=== PATIENT | female | born 1990 | race Hispanic/Latino ===

== ENCOUNTER 2019-06-24 10:28 | Emergency (ER) | payer MEDICAID, OTHER ==
[2019-06-24] MEDS ORDERED: KETOROLAC TROMETHAMINE 60 MG/2 ML VIAL ONE (11:57)
[2019-06-24] MEDS ORDERED: DEXAMETHASONE SOD PHOSPHATE 10MG/ML 1ML VIAL ONE (11:57)
[2019-06-24] MEDS ORDERED: LIDOCAINE HCL-MPF 1% 2ML VIAL ONE (11:57)
[2019-06-24] MEDS ORDERED: CEFTRIAXONE SODIUM 1 GM ONE (11:57)
== END 2019-06-24 12:45 | disposition home or self-care (01) ==
LOC: EDH 10:28
DX: J02.0 Streptococcal pharyngitis (principal); R11.2 Nausea with vomiting, unspecified
CPT/HCPCS: 81025; 87880; 96372 ×3; 99284; J0696; J1100; J1885; J3490

== ENCOUNTER 2019-07-22 13:44 | Emergency (ER) | payer OTHER | END 2019-07-22 14:35 | disposition home or self-care (01) | LOC: EDH 13:44 | DX: B08.4 Enteroviral vesicular stomatitis with exanthem (principal) | CPT/HCPCS: 99281 ==

== ENCOUNTER 2019-09-19 08:32 | Emergency (ER) | payer OTHER ==
[2019-09-19] MEDS ORDERED: LIDOCAINE HCL 1% 20 ML VIAL ONE (09:29)
== END 2019-09-19 10:02 | disposition home or self-care (01) ==
LOC: EDH 08:32
DX: L02.211 Cutaneous abscess of abdominal wall (principal); R21 Rash and other nonspecific skin eruption
CPT/HCPCS: 10060

== ENCOUNTER 2019-09-24 17:15 | Emergency (ER) | payer SELFPAY ==
[2019-09-24] MEDS ORDERED: LIDOCAINE HCL 1% 20 ML VIAL ONE (18:10)
[2019-09-24] MEDS ORDERED: LIDOCAINE HCL 2% VISCOUS 15 ML UDCUP ONE (18:33)
[2019-09-24] MEDS ORDERED: LIDOCAINE HCL-MPF 1% 2ML VIAL ONE (20:20)
[2019-09-24] MEDS ORDERED: CEFTRIAXONE SODIUM 1 GM ONE (20:20)
== END 2019-09-24 20:52 | disposition home or self-care (01) ==
LOC: EDH 17:15
DX: L02.411 Cutaneous abscess of right axilla (principal)
CPT/HCPCS: 82948; 87070; 87076; 96372; 99284; J0696; J3490

== ENCOUNTER 2019-11-24 20:15 | Emergency (ER) | payer OTHER ==
[2019-11-24 20:43] LABS: APPEARANCE,URINE Clear (CLEAR); BILIRUBIN,URINE Small (NEGATIVE); COLOR,URINE Dark Yellow (YELLOW); GLUCOSE, URINE (UA) Negative (NEGATIVE); KETONES,URINE Trace mg/dL (NEGATIVE); LEUKOCYTE ESTERASE ,URINE Small (NEGATIVE); NITRATE,URINE Negative (NEGATIVE); OCCULT BLOOD,URINE Negative (NEGATIVE); PH,URINE 5.5 (5.0-8.0); PROTEIN,URINE Trace mg/dL (NEGATIVE)
[2019-11-24 20:47] LABS: HCG,QUAL RESULT NEGATIVE (NEGATIVE)
[2019-11-24 21:54] LABS: BACTERIA,URINE Few /HPF (None Seen); RBC,URINE 0-1 /HPF (0-1)
== END 2019-11-24 22:30 | disposition home or self-care (01) ==
LOC: EDH 20:15
DX: N39.0 Urinary tract infection, site not specified (principal)
CPT/HCPCS: 81001; 81025

== ENCOUNTER 2022-08-11 19:17 | Emergency (ER) | payer MEDICAID ==
[~2022-08-11] VITALS: Ht 170.2 cm; Wt 97.5 kg
[2022-08-11 20:13] VITALS: BP 119/90
[2022-08-11] MEDS ORDERED: GENTAMICIN SULFATE 0.3% 5ML DROPS OU SCH (20:30)
== END 2022-08-11 20:30 | disposition home or self-care (01) ==
LOC: EDH 19:17
DX: H10.9 Unspecified conjunctivitis (principal)

== ENCOUNTER 2022-08-24 17:15 | Emergency (ER) | payer MEDICAID ==
[~2022-08-24] VITALS: Ht 170.2 cm; Wt 97.5 kg
[2022-08-24 17:17] VITALS: BP 137/77
[2022-08-24] MEDS ORDERED: GUAIFENESIN-CODEINE 5 ML SYRUP PO ONE (18:00)
[2022-08-24] MEDS ORDERED: ALBUTEROL INHALER 90MCG/INH IH ONE (18:00)
[2022-08-24] MEDS ORDERED: CEFTRIAXONE 1G VIAL IM ONE (18:00)
[2022-08-24] MEDS ORDERED: ACETAMINOPHEN 500 MG TABLET PO ONE (18:00)
[2022-08-24] MEDS ORDERED: AMOX1TAB16 PO (18:26)
[2022-08-24] MEDS ORDERED: D-ME1POW16 PO (18:26)
== END 2022-08-24 18:43 | disposition home or self-care (01) ==
LOC: EDH 17:15
DX: H66.92 Otitis media, unspecified, left ear (principal); B97.89 Other viral agents as the cause of diseases classified elsewhere; J06.9 Acute upper respiratory infection, unspecified; R05.9 Cough, unspecified; E66.9 Obesity, unspecified; Z68.33 Body mass index [BMI] 33.0-33.9, adult; Z20.822 Contact with and (suspected) exposure to COVID-19
CPT/HCPCS: 99284; 71045; 87635; 87804 ×2; 81025; 96372; C9803; J0696

== ENCOUNTER 2022-12-06 09:16 | Emergency (ER) | payer MEDICAID ==
[~2022-12-06] VITALS: Ht 170.2 cm; Wt 97.5 kg
[~2022-12-06 09:16] MED LIST: AMOX1TAB16 PO; D-ME1POW16 PO
[2022-12-06 09:19] VITALS: BP 125/73
[2022-12-06] MEDS ORDERED: KETO10TA2 PO (09:29)
[2022-12-06] MEDS ORDERED: CYCL5TAB PO (09:29)
[2022-12-06] MEDS ORDERED: KETOROLAC 15MG/ML VIAL (15MG/ML) IM ONE (10:00)
[2022-12-06] MEDS ORDERED: CYCLOBENZAPRINE HCL 10 MG TABLET PO ONE (10:00)
== END 2022-12-06 09:48 | disposition home or self-care (01) ==
LOC: EDH 09:16
DX: M62.830 Muscle spasm of back (principal); G89.29 Other chronic pain; M54.50 Low back pain, unspecified; E66.9 Obesity, unspecified; Z68.33 Body mass index [BMI] 33.0-33.9, adult
CPT/HCPCS: 99283; 96372; J1885